=== PATIENT | female | born 1945 | race Caucasian/White ===

== ENCOUNTER 2017-01-28 05:56 | Day surgery (SDC) | payer BC ==
[2017-01-23 20:59] LABS: HEMATOCRIT 36.6 % (36.0-48.0); HEMOGLOBIN 11.5 g/dL (12.0-16.0)
[2017-01-23 21:20] LABS: BUN (BLOOD UREA NITROGEN) 42 MG/DL (6-23); CALCIUM, SERUM 9.1 MG/DL (8.5-10.4); CHLORIDE, SERUM 106 MMOL/L (96-112); CO2 (CARBON DIOXIDE) 19 MMOL/L (24-34); CREATININE 2.24 MG/DL (0.55-1.02); GFR AFRICAN AMERICAN 25 ML/MIN (>=60); GFR NON AFRICAN AMERICAN 22 ML/MIN (>=60); GLUCOSE, SERUM 96 MG/DL (60-99); POTASSIUM, SERUM 4.3 MMOL/L (3.5-5.3); SODIUM, SERUM 139 MMOL/L (135-148)
[~2017-01-28 05:56] MED LIST: ASAB PO; CORDARONE PO; JANTOVEN4 MG PO; JANTOVEN5 MG PO; L20 PO; LIPITOR80 MG PO; PREV15 PO; PROAIRRESP INH; ROCALTROL0.25 MCG PO; TOPXL25 PO; VITAMIN D2 PO
[2017-01-28 06:42] LABS: INTERNATIONAL NORMAL RATI 2.3 UNITS (-); PROTIME (NOT ORD) 25.4 SEC (12.0-14.5)
[2017-01-28 06:49] LABS: ALBUMIN 3.5 G/DL (3.5-5.0); ALKALINE PHOSPHATASE 120 U/L (45-117); SGOT(AST) 23 U/L (5-40); SGPT(ALT) 41 U/L (5-65); TOTAL BILIRUBIN 0.3 MG/DL (0-1.2); TOTAL PROTEIN 7.4 G/DL (6.0-8.5)
[2017-01-28 06:50] LABS: DIRECT BILIRUBIN < 0.1 MG/DL (0.0-0.4); INDIRECT BILIRUBIN(NOT ORDER) 0.2 MG/DL (0.1-0.9)
== END 2017-01-28 23:59 | disposition home or self-care (01) ==
LOC: SDC 05:56
PROVIDERS: Surgery
DX: N18.5 Chronic kidney disease, stage 5 (principal); Z53.9 Procedure and treatment not carried out, unspecified reason
CPT/HCPCS: 36415; 80048; 80076; 85014; 85018; 85610; 93005